=== PATIENT | female | born 1985 | race Caucasian/White ===

== ENCOUNTER → 2018-06-26 | Outpatient (REF) ==
[~2018-06-26] MED LIST: BACTRIM DS 8001 TAB PO; INDERAL 10MG10 MG PO; NO HOME MEDICATIONS; NORCO 325 MG-7.1 TAB PO; PRENATAL VITAMI1 TA5 PO; PRENATAL1 TA1 PO
== END ==
LOC: ZLAB.WCH 15:46
DX: A74.9 Chlamydial infection, unspecified (principal)